=== PATIENT | male | born 1955 | race Caucasian/White ===

== ENCOUNTER 2019-03-29 21:11 | Emergency (ER) | payer OTHER ==
[2019-03-29] MEDS: ALBUTEROL 0.083% (NEB) 2.5 MG/3 ML AMP HHN (22:02)
[2019-03-29] MEDS: IPRATROPIUM (NEB) 0.5 MG/2.5 ML AMP HHN (22:02)
[2019-03-29 22:10] LABS: ADD UMIC YES; UR ASCORBIC ACID NEGATIVE (NEGATIVE); UR BILIRUBIN (Dip) NEGATIVE (NEGATIVE); UR BLOOD (Dip) 2+ mg/dL (NEGATIVE); UR CLARITY CLEAR (CLEAR); UR COLOR YELLOW (YELLOW); UR GLUCOSE (Dip) NEGATIVE (NEGATIVE); UR KETONES (Dip) NEGATIVE (NEGATIVE); UR LEUKOCYTE ESTERASE (Dip) NEGATIVE Leu/ul (NEGATIVE); UR NITRITE (Dip) NEGATIVE (NEGATIVE); UR RBC 2 /HPF (0-5); UR SPECIFIC GRAVITY (Dip) 1.008 (1.003-1.030); UR TOTAL PROTEIN (Dip) NEGATIVE (NEGATIVE); UR UROBILINOGEN (Dip) NEGATIVE (NEGATIVE); UR WBC 1 /HPF (0-5)
== END 2019-03-29 22:45 | disposition home or self-care (01) ==
LOC: E/R 21:11
DX: R33.9 Retention of urine, unspecified (principal); R06.2 Wheezing
CPT/HCPCS: 51702; 81001; 87086; 94664; 99283-25